=== PATIENT | male | born 1980 | race Caucasian/White ===

== ENCOUNTER → 2018-04-01 | Outpatient (CLI) | payer BC ==
[~2018-04-01] MED LIST: GADOBUTROL 10 ML VIAL IVP ONE
== END ==
LOC: FIMAGING 12:33
PROVIDERS: ATTEND Physician Assistant
DX: R42 Dizziness and giddiness (principal)
CPT/HCPCS: A9585

== ENCOUNTER 2018-05-18 15:40 | Emergency (ER) | payer BC ==
--- NOTE | 2018-05-18 17:27 | EDPHY ---
H & P Time Seen by Provider: 05/18/18 16:59 HPI/ROS: Chief complaint. Sciatica and tingling to toes HPI. Patient is a 37-year-old male has had 2 back surgeries last being about 7 months ago. He had a L5-S1 fusion. He has been doing therapy and has been back to mountain biking and fairly regular activities. For approximately 2 weeks he has had sharp pain in the tailbone area especially if he coccyx his tailbone forward. Otherwise bending and flexing and walking did not cause symptoms. However he then developed some radiation of pain to the right lower extremity and foot with tingling. No weakness. Symptoms are similar to his herniated disc. He also feels he has numbness in the right gluteus area. Some tingling to his penis. Feels occasional urge to urinate but is able to control is urination. Normal bowel movements. No fever. He has concern for another herniated disc or concerns for his hardware. ROS Constitutional. no fever/chills, no weakness Eyes. no problems with vision ENT. no sore throat, no nasal drainage Cardiovascular. no chest pain Respiratory. no shortness of breath, no cough Abdominal. no abdominal pain, no nausea/vomiting, no diarrhea . no problems urinating MS. Low back pain with radiation down the right leg. Skin. no rash Lymph. no swollen glands Neuro. Altered sensation to the penis and the right gluteus Past Medical/Surgical History: 2 back surgeries Social History: , nonsmoker, no alcohol Smoking Status: Never smoked Physical Exam: General Appearance: Alert well-developed male mild distress vital signs are stable Eyes: Pupils equal and round no pallor or injection. ENT, Mouth: Mucous membranes are moist. Respiratory: There are no retractions, lungs are clear to auscultation. Cardiovascular: Regular rate and rhythm. Gastrointestinal: Abdomen is soft and nontender, no masses, bowel sounds normal. Neurological: Awake and alert, sensory and motor exams grossly normal. Straight leg raising is negative to 30 degrees bilaterally. Deep tendon reflexes are symmetrical. Great toe strength is normal. Sensation symmetrical to both legs Skin: Well-healed surgical incision to his back Musculoskeletal: Neck is supple nontender. Extremities symmetrical, full range of motion. Psychiatric: Patient is oriented X 3, there is no agitation. Constitutional: Initial Vital Signs Temperature (C) 36.6 C 05/18/18 15:42 Heart Rate 67 05/18/18 15:42 Respiratory Rate 18 05/18/18 15:42 Blood Pressure 150/94 H 05/18/18 15:42 O2 Sat (%) 98 05/18/18 15:42 O2 Delivery Mode Room Air Allergies/Adverse Reactions: shellfish derived Allergy (Verified 05/18/18 15:41) Home Medications: Medication Instructions Recorded NK [No Known Home Meds] 05/18/18 Medical Decision Making - Diagnostics Imaging Results: Imaging Impressions Lumbar Spine MRI 05/18/18 17:46 Impression: Postsurgical changes of diskectomy and interbody bone graft at L5- S1, with hardware fixation, with paired pedicle screws and stabilization rods. Minimal anterolisthesis of L5 on S1. No evidence for abnormal enhancement or significant encroachment. Results called and discussed with Adrian Guidry M.D., on May 18, 2018 at 1953. MRI with and without contrast reviewed by me and discussed with Dr. Holliday. There are no acute findings. This appears to be normal postop findings Procedures: IV normal saline ED Course/Re-evaluation: Labs are normal. Re-evaluation 7:55 p.m.. Patient and I discussed laboratory evaluation, MRI findings. We discussed treatment plan including criteria for return importance of follow-up further evaluation. He expresses understanding and agreement Differential Diagnosis: I considered HNP, abscess, seroma, cauda equina syndrome. This may be musculoskeletal in etiology - Data Points Laboratory Results: Laboratory Results 05/18/18 18:25 05/18/18 18:25 05/18/18 05/18/18 18:25 18:25 WBC 6.61 10^3/uL 10^3/uL (3.80-9.50) RBC 5.74 10^6/uL 10^6/uL (4.40-6.38) Hgb 17.0 g/dL g/dL (13.7-17.5) Hct 49.3 % % (40.0-51.0) MCV 85.9 fL fL (81.5-99.8) MCH 29.6 pg pg (27.9-34.1) MCHC 34.5 g/dL g/dL (32.4-36.7) RDW 13.1 % % (11.5-15.2) Plt Count 221 10^3/uL 10^3/uL (150-400) MPV 11.0 fL fL (8.7-11.7) Neut % (Auto) 69.5 % % (39.3-74.2) Lymph % (Auto) 23.3 % % (15.0-45.0) Rhea % (Auto) 5.1 % % (4.5-13.0) Eos % (Auto) 1.4 % % (0.6-7.6) Baso % (Auto) 0.5 % % (0.3-1.7) Nucleat RBC Rel Count 0.0 % % (0.0-0.2) Absolute Neuts (auto) 4.60 10^3/uL 10^3/uL (1.70-6.50) Absolute Lymphs (auto) 1.54 10^3/uL 10^3/uL (1.00-3.00) Absolute Monos (auto) 0.34 10^3/uL 10^3/uL (0.30-0.80) Absolute Eos (auto) 0.09 10^3/uL 10^3/uL (0.03-0.40) Absolute Basos (auto) 0.03 10^3/uL 10^3/uL (0.02-0.10) Absolute Nucleated RBC 0.00 10^3/uL 10^3/uL (0-0.01) Immature Gran % 0.2 % % (0.0-1.1) Immature Gran # 0.01 10^3/uL 10^3/uL (0.00-0.10) Sodium 140 mEq/L mEq/L (135-145) Potassium 4.2 mEq/L mEq/L (3.3-5.0) Chloride 103 mEq/L mEq/L (97-110) Carbon Dioxide 26 mEq/l mEq/l (22-31) Anion Gap 11 mEq/L mEq/L (8-16) BUN 16 mg/dL mg/dL (7-23) Creatinine 0.7 mg/dL mg/dL (0.7-1.3) Estimated GFR > 60 Glucose 80 mg/dL mg/dL (70-100) Calcium 10.1 mg/dL mg/dL (8.5-10.4) Medications Given: Discontinued Medications Sodium Chloride (Ns) 1,000 mls @ 0 mls/hr IV EDNOW ONE; Wide Open PRN Reason: Protocol Stop: 05/18/18 17:47 Last Admin: 05/18/18 18:31 Dose: 1,000 mls Departure - Departure Disposition: Home, Routine, Self-Care Clinical Impression: Sciatica Qualifiers: Laterality: right Qualified Code(s): M54.31 - Sciatica, right side Condition: Good Instructions: Lumbar Radiculopathy (ED) Additional Instructions: Easy activity. Return for worsening pain, leg weakness, bowel or bladder symptoms. Follow-up with stent been clinic for further evaluation. Referrals: LINDA JONES [Other] - 2-3 days, if not improved
[2018-05-18] MEDS ORDERED: NS 1,000 ML IV ONE (17:46)
[2018-05-18 18:43] LABS: PLATELET COUNT 221 10^3/uL (150-400)
[2018-05-18] MEDS ORDERED: GADOBUTROL 10 ML VIAL IVP ONE (18:56)
[2018-05-18 20:19] VITALS: BP 137/72
== END 2018-05-18 20:18 | disposition home or self-care (01) ==
DX: M54.31 Sciatica, right side (principal); Z98.890 Other specified postprocedural states
CPT/HCPCS: A9585

== ENCOUNTER → 2018-06-01 | Outpatient (CLI) | payer BC | LOC: FIMAGING 17:21 | PROVIDERS: ATTEND Orthopaedic Surgery Orthopaedic Surgery of the Spine | DX: M16.0 Bilateral primary osteoarthritis of hip (principal); M25.852 Other specified joint disorders, left hip; M25.851 Other specified joint disorders, right hip ==